=== PATIENT | male | born 1980 | race Caucasian/White ===

== ENCOUNTER 2017-01-15 18:48 | Emergency (ER) | payer OTHER | END 2017-01-15 22:45 | disposition short-term general hospital (02) | LOC: ER 18:48 | DX: T79.7XXA Traumatic subcutaneous emphysema, initial encounter (principal); J90 Pleural effusion, not elsewhere classified; F41.9 Anxiety disorder, unspecified; I25.2 Old myocardial infarction; Z88.8 Allergy status to other drugs, medicaments and biological substances; Y09 Assault by unspecified means | CPT/HCPCS: 36415; 96372; J2270; J2550 ==

== ENCOUNTER 2017-02-11 18:35 | Emergency (ER) | payer OTHER | END 2017-02-11 20:11 | disposition home or self-care (01) | LOC: ER 18:35 | DX: S22.42XG Multiple fractures of ribs, left side, subsequent encounter for fracture with delayed healing (principal); R07.81 Pleurodynia; R06.02 Shortness of breath; I25.2 Old myocardial infarction; F41.9 Anxiety disorder, unspecified; Z87.891 Personal history of nicotine dependence; Z88.8 Allergy status to other drugs, medicaments and biological substances; Y04.0XXD Assault by unarmed brawl or fight, subsequent encounter ==